=== PATIENT | female | born 1955 | race Caucasian/White ===

== ENCOUNTER → 2021-01-10 | Outpatient (CLI) | payer BC, OTHER ==
[~2021-01-10] MED LIST: BENAZEPRIL HCL40 MG PO; DILT-XR240 M1 PO; HYDROCHLOROTHIA25 M1 PO; METFORMIN HCL1000 MG PO; METOPROLOL SUC200 MG PO; TRULICITY1.5 MG/0.5 SUBQ
== END ==
LOC: LAB 13:53
PROVIDERS: ATTEND Orthopaedic Surgery Sports Medicine
DX: Z01.812 Encounter for preprocedural laboratory examination (principal); Z20.822 Contact with and (suspected) exposure to COVID-19

== ENCOUNTER 2021-01-15 12:31 | Day surgery (SDC) | payer BC, OTHER ==
[~2021-01-15] VITALS: Ht 162.6 cm; Wt 86.2 kg
--- NOTE | ~2021-01-15 | O ---
[facility] [place] [address] OPERATIVE REPORT Name: CANDIDO RODRIGUES Room #: DEP [facility] MJoao.#: [id number] Admission: 01/15/21 Attend Phys: Bertin Granda Discharge: 01/15/21 Date of : 53 Report #: [id number] THIS REPORT FOR: cc: Andreas Quinones Steven D. DO VanDenBerghe, Gregory R. MD ~ DOC #: [id number] Bertin Masters MD DATE OF SERVICE: 01/15/2021 PREOPERATIVE DIAGNOSIS: Right humeral shaft fracture, nonunion. POSTOPERATIVE DIAGNOSIS: Right humeral shaft fracture, nonunion. PROCEDURE PERFORMED: Open reduction internal fixation of right humeral shaft fracture with bone grafting. SURGEON: Bertin Masters MD SHANK TURNER: Katharine George PA-C. ANESTHESIA: General with preoperative ultrasound-guided interscalene block. FLUID: 500 mL crystalloid. ESTIMATED BLOOD LOSS: Approximately 30 mL IMPLANTS UTILIZED: Synthes narrow 4.5 LC-DCP plate, locking, [employer] DBX putty 5 mL, expiration 05/23/2022, item number [id number]. DESCRIPTION OF PROCEDURE: After proper identification of the patient and the operative site in the preop holding area, the operative site was signed by myself. Prophylactic antibiotics given. The patient elected to receive a block after reviewing the risks, benefits, alternatives, and potential complications with anesthesia. After a satisfactory block, the patient was brought back to the operative suite. After induction of satisfactory general anesthesia, the patient was carefully positioned in the beach chair with head of bed elevated approximately 35 degrees. The right arm was sterilely prepped and draped and placed in a Directa Plus Limb positioning system. Final draping was with Ioban. An anterior approach of Paul was utilized to expose the humerus. After a timeout had been performed, skin was incised sharply. Full-thickness skin flaps were developed. The biceps brachii muscle belly was identified and retracted medially. Brachialis muscle belly was then divided longitudinally in approximate halves and the bone was carefully exposed in a subperiosteal manner. Great care was taken to protect the neurovascular structures with attention to the radial nerve as well. The fracture site was identified. The patient [address] [address] OPERATIVE REPORT Name: CANDIDO RODRIGUES Room #: DEP [facility] Elisa#: [id number] Admission: 01/15/21 Attend Phys: Bertin Granda Discharge: 01/15/21 Date of : 53 Report #: [id number] appeared to be trying to form more of a union medially, but more anterolaterally, nonunion was appreciated. Fibrous tissue was carefully curetted out with a small curette and rongeur. This area was then irrigated and bone grafted and the alignment was essentially left in its current position and could not be significantly changed from its mild angulation and displacement. A 7-hole narrow 4.5 mm LC-DCP plate was provisionally secured with a cortical screw. Position was checked in the AP and lateral planes and deemed to be in satisfactory position and then after the 2 cortical screws utilized to provisionally secure the remaining locking screws were inserted, which provided excellent fixation. Repair construct was stable. Overall, fracture alignment was satisfactory, but without significant change from previously and the bone graft had been placed. The wound was carefully irrigated and dried and 1 gram of vancomycin powder was utilized half at deep and half at more superficial. Fascia was closed with 0 Vicryl, 2-0 Vicryl in the subcutaneous tissues followed by brando. Sterile dressing was applied followed by a sling. Qualified assistant store manager operations utilized throughout the entire procedure to aid in patient limb positioning, visualization and retraction of the soft tissues, instrument passage closure and sling and dressing application. Bertin Masters MD GRV/NIT By: [id number] 03 Bertin Masters MD /nt
[2021-01-15 13:58] LABS: CALCIUM 9.9 mg/dL (8.5-10.1); CREATININE 1.3 mg/dL (0.6-1.0); POTASSIUM 3.6 mmol/L (3.5-5.1)
[2021-01-15 15:28] VITALS: BP 204/83
--- NOTE | 2021-01-16 07:08 | EKG ---
[address] [address] ELECTROCARDIOGRAM REPORT Name: CANDIDO RODRIGUES [id number] Admission: 01/15/21 Attend Phys: Bertin Granda Discharge: 01/15/21 Date of : 53 Report #: [id number] [facility] Test Date: 2021-01-15 Test Time: 13:24:28 Pat Name: CANDIDO RODRIGUES Department: Room: [facility] 3 Gender: F Warp Picker: MICKEY : 1955 Requested By: Bertin Masters Order Number: [id number] MD: Tye Silver Measurements Intervals [place] Rate: 101 P: 65 [place]: 180 QRS: 17 QRSD: 90 T: 79 QT: 341 QTc: 442 Interpretive Statements Sinus tachycardia Left atrial enlargement Borderline ST depression, lateral leads Compared to ECG 01/15/2021 13:23:00 ST (T wave) deviation now present Electronically Signed On 01-16-2021 7:08:23 CDT by Tye Silver [email or web address] <ELECTRONICALLY SIGNED> By: Tye Silver MD, [facility] 01/16/21 0708 1324 1324 Tye Silver MD, [facility] /EPI
--- NOTE | 2021-01-16 07:08 | EKG ---
[address] [address] ELECTROCARDIOGRAM REPORT Name: LILIACANDIDO [id number] Admission: 01/15/21 Attend Phys: Bertin Granda Discharge: 01/15/21 Date of : 53 Report #: [id number] [facility] Test Date: 2021-01-15 Test Time: 13:23:00 Pat Name: CANDIDO RODRIGUES Department: Room: Gender: F Family Lawyer: : 1955 Requested By: Bertin Masters Order Number: [id number] MD: Tye Silver Measurements Intervals [place] Rate: 103 P: 69 [place]: 177 QRS: 20 QRSD: 88 T: 79 QT: 333 QTc: 436 Interpretive Statements Sinus tachycardia Left atrial enlargement Borderline repolarization abnormality No previous ECG available for comparison Electronically Signed On 01-16-2021 7:08:20 CDT by Tye Silver [email or web address] <ELECTRONICALLY SIGNED> By: Tye Silver MD, [facility] 01/16/21 0708 1323 1323 Tye Silver MD, [facility] /EPI
== END 2021-01-15 18:15 | disposition home or self-care (01) ==
LOC: OR 12:31 → TBA 13:51 → OR 13:58
PROVIDERS: ATTEND Orthopaedic Surgery Sports Medicine
DX: S42.301K Unspecified fracture of shaft of humerus, right arm, subsequent encounter for fracture with nonunion (principal); I10 Essential (primary) hypertension; E78.00 Pure hypercholesterolemia, unspecified; E11.9 Type 2 diabetes mellitus without complications; Z98.41 Cataract extraction status, right eye; Z98.42 Cataract extraction status, left eye; Z98.890 Other specified postprocedural states; Z79.899 Other long term (current) drug therapy; X58.XXXD Exposure to other specified factors, subsequent encounter
CPT/HCPCS: 50010; 50101; 50172; 50386; 50417; 50697; 50733; 50935; 51014; 51320; 51816; 52001; 54118; 56525; 56527; 56667; 57103; 58585; 62110; 62900; 64039; 70005